=== PATIENT | male | born 1960 | race Caucasian/White ===

== ENCOUNTER 2016-11-27 17:07 | Emergency (ER) | payer BC ==
[~2016-11-27] VITALS: Ht 172.7 cm; Wt 86.3 kg
[2016-11-27] MEDS ORDERED: ALLO100T PO (17:26)
[2016-11-27] MEDS ORDERED: PYRI50 PO (17:26)
[2016-11-27] MEDS ORDERED: FURO40 PO (17:26)
[2016-11-27] MEDS ORDERED: ASPI81 PO (17:26)
[2016-11-27] MEDS ORDERED: CARV12 PO (17:26)
[2016-11-27] MEDS ORDERED: MONT10TA21 PO (17:26)
[2016-11-27] MEDS ORDERED: LISI-662 PO (17:26)
[2016-11-27] MEDS ORDERED: FAMO20 PO (17:26)
[2016-11-27] MEDS ORDERED: TAMS0.4C32 PO (17:26)
[2016-11-27] MEDS ORDERED: ATOR20TA86 PO (17:26)
[2016-11-27] MEDS ORDERED: ISON100L PO (17:26)
[2016-11-27] MEDS ORDERED: FENO160 PO (18:18)
[2016-11-27] MEDS ORDERED: CANA100T PO (18:18)
[2016-11-27] MEDS ORDERED: ROSU10 PO (18:18)
[2016-11-27] MEDS ORDERED: AMLO-511 PO (18:18)
[2016-11-27] MEDS ORDERED: PERTUSS(ACELL),DIPH,TET VAC/PF 0.5 ML VIAL IM ONE (19:30)
[2016-11-27] MEDS ORDERED: LIDOCAINE HCL BUFFERED 1% 20 ML VIAL INJ ONE (19:30)
[2016-11-27] MEDS ORDERED: BACITRACIN 0.9 GM PACKET OINTMENT TP ONE (21:15)
[2016-11-27 21:28] VITALS: BP 137/81
== END 2016-11-27 21:29 | disposition home or self-care (01) ==
LOC: EMS 17:13
DX: S61.210A Laceration without foreign body of right index finger without damage to nail, initial encounter (principal); E78.00 Pure hypercholesterolemia, unspecified; E11.9 Type 2 diabetes mellitus without complications; I10 Essential (primary) hypertension; X58.XXXA Exposure to other specified factors, initial encounter; Y93.89 Activity, other specified; Y92.89 Other specified places as the place of occurrence of the external cause; Y99.8 Other external cause status
CPT/HCPCS: 12001; 73140; 82962; 90471; 90715; 99284; J3490